=== PATIENT | female | born 1935 | race Caucasian/White ===

== ENCOUNTER 2017-02-13 22:13 | Inpatient (IN) | payer OTHER ==
[~2017-02-13] VITALS: Ht 170.2 cm; Wt 61.2 kg
[~2017-02-13 22:13] MED LIST: IRON325 M1 PO; LISINOPRIL-HCT1 EACH PO; LO-DOSE ASPIRIN81 M2 PO; SYNTHROID88 MCG PO; TYLENOL ARTHRI650 MG PO
[2017-02-14 06:06] VITALS: BP 164/71
[2017-02-14 10:23] VITALS: BP 149/67
[2017-02-14 12:30] VITALS: BP 120/58
[2017-02-14 15:55] VITALS: BP 116/54
[2017-02-14 18:14] VITALS: BP 92/46
[2017-02-14 20:27] VITALS: BP 108/53
[2017-02-15 00:18] VITALS: BP 144/71
[2017-02-15 04:20] VITALS: BP 137/57
[2017-02-15 08:30] VITALS: BP 114/58
[2017-02-15 09:18] LABS: HEMATOCRIT 30.1 % (36.0-46.0); MCV 93.5 FL (83-99)
[2017-02-15 09:27] LABS: HEMOGLOBIN 10.1 G/DL (11.9-15.5)
[2017-02-15 09:53] LABS: CHLORIDE 92 MEQ/L (99-109); CREATININE 0.9 MG/DL (0.6-1.3); GFR ESTIMATE (CALCULATED) > 59 mL/min/; GLUCOSE 116 mg/dL (70-99); POTASSIUM 3.9 MEQ/L (3.7-5.4); SODIUM 126 MEQ/L (136-147); UREA NITROGEN (BUN) 21 mg/dL (9-23)
[2017-02-15 12:00] VITALS: BP 130/71
[2017-02-15 16:00] VITALS: BP 151/65
[2017-02-15 20:13] VITALS: BP 124/58
[2017-02-16 00:26] VITALS: BP 134/61
[2017-02-16 04:30] VITALS: BP 149/67
[2017-02-16 08:22] VITALS: BP 160/75
[2017-02-16 08:55] LABS: HEMATOCRIT 28.1 % (36.0-46.0); HEMOGLOBIN 9.5 G/DL (11.9-15.5); MCV 92.1 FL (83-99)
[2017-02-16 09:21] LABS: CREATININE 0.8 MG/DL (0.6-1.3); GFR ESTIMATE (CALCULATED) > 59 mL/min/; POTASSIUM 3.8 MEQ/L (3.7-5.4); UREA NITROGEN (BUN) 12 mg/dL (9-23)
[2017-02-16 09:27] LABS: CHLORIDE 102 MEQ/L (99-109); GLUCOSE 81 mg/dL (70-99); SODIUM 138 MEQ/L (136-147)
[2017-02-16 09:38] LABS: CHLORIDE 104 MEQ/L (99-109); CREATININE 0.8 MG/DL (0.6-1.3); GFR ESTIMATE (CALCULATED) > 59 mL/min/; POTASSIUM 3.6 MEQ/L (3.7-5.4); SODIUM 138 MEQ/L (136-147); UREA NITROGEN (BUN) 12 mg/dL (9-23)
[2017-02-16 09:57] LABS: GLUCOSE 102 mg/dL (70-99)
[2017-02-16] MEDS ORDERED: ELIQUIS2.5 MG PO (09:59)
[2017-02-16] MEDS ORDERED: CELECOXIB200 MG PO (09:59)
[2017-02-16] MEDS ORDERED: OXYCODONE HCL5 MG PO (09:59)
[2017-02-16 12:00] VITALS: BP 146/63
== END 2017-02-16 17:44 | DRG 470 ==
LOC: ENRESERV 22:13 → 3WEST 02-14 05:22 → 2SOUTH 02-14 05:22 → 3WEST 02-14 10:11 → 2SOUTH 02-14 11:40 → ENRESERV 02-16 07:37 → CANRESERV 02-16 13:47 → 3WEST 02-16 17:44
PROVIDERS: Orthopaedic Surgery; Physician Assistant
PROC: 0SRD0J9 Replacement of Left Knee Joint with Synthetic Substitute, Cemented, Open Approach (ICD-10-PCS; principal; 2017-02-14)
DX: M17.12 Unilateral primary osteoarthritis, left knee (principal); E87.1 Hypo-osmolality and hyponatremia; G89.18 Other acute postprocedural pain; I10 Essential (primary) hypertension; E03.9 Hypothyroidism, unspecified; Z90.710 Acquired absence of both cervix and uterus; K58.9 Irritable bowel syndrome, unspecified; Z96.641 Presence of right artificial hip joint; Z82.49 Family history of ischemic heart disease and other diseases of the circulatory system; Z85.828 Personal history of other malignant neoplasm of skin
CPT/HCPCS: 80048; 80048 91; 85014; 85018; C1713; J0131; J0690; J1885; J2250; J2405; J2795; J3010; J7030; J7050